=== PATIENT | male | born 1955 | race Caucasian/White ===

== ENCOUNTER 2017-10-08 13:05 | Emergency (ER) | payer OTHER ==
--- NOTE | 2017-10-08 14:00 | XR ---
EXAMINATION TYPE: XR ankle complete LT DATE OF EXAM: 10/08/2017 CLINICAL HISTORY: Left lower extremity swelling with no known injury. TECHNIQUE: Frontal, lateral and oblique images of the left ankle are obtained. COMPARISON: None. FINDINGS: There is abnormal alignment of the talus with the tibia with severe hindfoot varus and bon e-on-bone articulation of the medial talar dome with the tibia. There is no acute fracture/dislocatio n evident in the left ankle. The ankle mortise appears within normal limits. The overlying soft tis elzbieta appears unremarkable. Irregularity at the medial malleolus could represent old well-corticated fr acture fragments, accessory ossicles or enthesophytes. IMPRESSION: 1. 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 2. Nonspecific mild generalized soft tissue swelling of the left ankle with no acute fracture or disl ocation in the left ankle.
--- NOTE | 2017-10-08 14:04 | ED ---
Lower Extremity Injury HPI - General Chief Complaint: Extremity Injury, Lower Stated Complaint: lt ankle pain Time Seen by Provider: 10/08/17 13:31 Source: patient Mode of arrival: ambulatory Limitations: no limitations - History of Present Illness Initial Comments: This 62-year-old white male presents with a complaint of some left ankle pain. He states that it has been bothering him for approximately one month. He states that he cannot recall any injury but certainly may have injured it. He relates that he is an alcoholic and is currently in rehab at [facility]. He has been in there for the past 10 days. He states that he may have had a blacking out spell when he is drinking heavily over the past month and could have injured it. He states that it is worse when he goes upstairs and ambulates. He states that the pain is primarily over the lateral malleolus. He denies any other injuries or complaints or modifying factors. He has tried some Motrin for it thus far. - Related Data Home Medications Medication Instructions Recorded Confirmed ARIPiprazole [Abilify] 5 mg PO DAILY 10/08/17 10/08/17 Citalopram Hydrobromide [CeleXA] 40 mg PO DAILY 10/08/17 10/08/17 Previous Rx's Medication Instructions Recorded Ibuprofen [Motrin] 800 mg PO Q8H PRN #30 tab 10/08/17 Allergies Allergy/AdvReac Type Severity Reaction Status Date / Time No Known Allergies Allergy Verified 10/08/17 13:30 Review of Systems ROS Statement: Those systems with pertinent positive or pertinent negative responses have been documented in the HPI. ROS Other: All systems not noted in ROS Statement are negative. Past Medical History History of Any Multi-Drug Resistant Organisms: None Reported Past Surgical History: Appendectomy Past Psychological History: Bipolar, Depression Smoking Status: Never smoker Past Alcohol Use History: Abuse Past Drug Use History: Cocaine, Marijuana General Exam Limitations: no limitations General appearance: alert, in no apparent distress Extremities exam: Present: normal inspection, tenderness (There is some mild to moderate tenderness noted to the left lateral malleolus. There is excellent range of motion of the left ankle. There is no foot or proximal fibular tenderness. No other musculoskeletal injuries noted.), normal capillary refill. Absent: pedal edema, calf tenderness Neurological exam: Present: alert, oriented X3 Psychiatric exam: Present: normal affect, normal mood Skin exam: Present: intact. Absent: rash Course Vital Signs 10/08/17 13:16 Temperature 97.9 F Pulse Rate 67 Respiratory 18 Rate Blood Pressure 114/68 O2 Sat by Pulse 95 Oximetry Medical Decision Making - Medical Decision Making The patient was seen and examined. All diagnostics are reviewed. The patient did have an x-ray of the left ankle. This does show an old osseous abnormality of the distal fibula which could be related to a previous nonacute fracture. There is some gaping of the left ankle joint space indicating some potential partial instability. The radiologist notes that there is malalignment of the talar tibial joint with severe iron foot varus and [id number]-go-[id number] articulation of the medial talar dome with the tibia resulting in opposing surface sclerosis. There is some mild arthritis noted. The patient is placed in a 3 inch Ortho- Glass custom molded splint. Excellent post-splint neurovascular status is identified. It is felt as though he would benefit from follow-up with orthopedic consultation. He has been ambulatory on it for the past one month thus far but states that it seems be getting worse. He will be given orthopedic follow-up. He is to continue with Motrin and ice. He is provided crutches and it is recommended that he be nonweightbearing until cleared by orthopedics. He is discharged back to [facility] for further rehab and is encouraged in this regard. Disposition Clinical Impression: Ankle instability, Ankle arthritis, Ankle sprain Disposition: HOME SELF-CARE Condition: Fair Instructions: Ankle Sprain (ED), Crutch Instructions (ED), Splint Care (ED) Additional Instructions: Please do not walk on your left foot/ankle until cleared by orthopedics. Prescriptions: Ibuprofen [Motrin] 800 mg PO Q8H PRN #30 tab PRN Reason: Pain Is patient prescribed a controlled substance at d/c from ED?: No Referrals: Nonstaff,Physician [Primary Care Provider] - 1-2 days Heena Daniels PAC [PHYSICIAN HOME SERVICE CONSULTANT] - 10/11/17 Time of Disposition: 14:17
[2017-10-08 14:24] VITALS: BP 113/78; PULSE 63; RESP 15; TEMP 97.8
== END 2017-10-08 14:30 | disposition home or self-care (01) ==
LOC: EC 13:05
DX: S93.402A Sprain of unspecified ligament of left ankle, initial encounter (principal); M25.372 Other instability, left ankle; M19.072 Primary osteoarthritis, left ankle and foot; F31.9 Bipolar disorder, unspecified; Z79.899 Other long term (current) drug therapy
CPT/HCPCS: 29515; 99283